=== PATIENT | female | born 1975 | race Caucasian/White ===

== ENCOUNTER 2017-09-26 19:02 | Emergency (ER) | payer MEDICAID, SELFPAY ==
[2017-09-26 19:02] VITALS: BP 135/100; PULSE 75; RESP 16; TEMP 36.8; O2SAT 99; BMI 21.1
--- NOTE | 2017-09-26 20:35 | EKG12_ITS ---
Test Reason : Blood Pressure : / mmHG Vent. Rate : 063 BPM Atrial Rate : 063 BPM P-R Int : 160 ms QRS Dur : 086 ms QT Int : 410 ms P-R-T Axes : 065 055 028 degrees QTc Int : 419 ms Normal sinus rhythm Normal ECG Confirmed by NATALIE CARMONA MD ([id number]), assistant production editor SKYLAR FERNANDEZ ([id number]) on 09/30/2017 12:59:42 PM Referred By: Confirmed By:NATALIE CARMONA MD
--- NOTE | 2017-09-26 20:35 | CT_ITS ---
STUDY: CT ABDOMEN AND PELVIS WITH CONTRAST REASON FOR EXAM: Female, 42 years old. Diarrhea and vomiting RADIATION DOSAGE (If Supplied By Facility): CTDIvol = ( 10.01 ) mGy, DLP = ( 497.69 ) mGycm TECHNIQUE: Transaxial images were obtained from the dome of the diaphragm to the symphysis pubis without oral contrast. 100 ml of Isovue 300 contrast was administered. Sagittal and coronal images were reconstructed. Individualized dose optimization techniques were used for this CT. COMPARISON: None. FINDINGS: The visualized lung bases are unremarkable. The visualized portions of the heart are within normal limits. Normal liver. Normal gallbladder and extrahepatic biliary system. Normal spleen. Normal pancreas. Normal bilateral adrenal glands. Normal right kidney. Normal left kidney. Normal visualized stomach. Normal small intestine. Normal colon. The appendix is visualized and appears normal. Normal abdominal aorta. Normal inferior vena cava. Normal retroperitoneum. Normal urinary bladder. 2 surgical clips are noted in the right pelvis. The uterus appears normal. Normal abdominal wall. Mild dextroconvex scoliosis. CT/Abdomen/Pelvis WITH Contrast IMPRESSION: No acute disease Electronically Signed: Raúl Perez MD at 23:31 EDT , Service support ,
--- NOTE | 2017-09-26 20:38 | RAD_ITS ---
STUDY: X-RAY CHEST REASON FOR EXAM: Female, 42 years old. Nausea and vomiting TECHNIQUE: Single AP portable view of the chest. COMPARISON: Previous study of June 29, 2009 FINDINGS: The lungs are clear and expanded. There is no demonstrated pleural abnormality. Normal size heart. Normal mediastinum and janay. Normal visualized pulmonary arteries. Normal visualized aortic arch and descending thoracic aorta. Normal visualized thoracic spine. Normal visualized ribs, clavicles, and shoulders. There is no demonstrated abnormality of the visualized soft tissue structures of the upper abdomen. RAD/Chest 1 View (Portable) IMPRESSION: Normal x-ray examination of the chest. Electronically Signed: Mike Aebl MD at 20:57 EDT , Service support ,
[2017-09-26] MEDS: 0.9% Normal Saline 1,000 ML 1000 ML IV (20:48)
[2017-09-26] MEDS: Ondansetron 4 MG/2 ML Vial IV (20:48)
[2017-09-26 20:50] VITALS: PULSE 67; RESP 20; O2SAT 100
[2017-09-26 20:52] LABS: Absolute Lymphocyte Count 1.19 X10^3/ul (0.83-4.51); Basophil# 0.01 X10^3/uL; Basophil% 0.3 % (0-1); Eosinophils% 5.2 % (0-5); Hematocrit 43.1 % (37-47); Hemoglobin 14.1 g/dl (12.0-15.0); Lymphocyte # 1.19 X10^3/ul (4.0); Lymphocyte % 30.8 % (19-41); Mean Corp Hgb Conc 32.7 g/gl (32-36); Mean Corpuscular Volume 100.9 fL (81-99); Mean Platelet Vol. 11.6 fl (6.2-12.0); Monocyte# 0.43 X10^3/uL; Monocyte% 11.1 % (0-10); Neutrophil # 2.02 X10^3/uL (2.7-7.7); Neutrophil % 52.3 % (47-70); Platelet Count 124 K/mm3 (150-450); RBC Distribution Width CV 12.9 % (11.6-14.6); RBC Distribution Width SD 46.8 fl (35.1-43.9); Red Blood Count 4.27 M/mm3 (4.2-5.4); White Blood Count 3.9 K/mm3 (4.4-11.0)
[2017-09-26 20:53] LABS: POSITIVE COUNT NO; POSITIVE DIFFERENTIAL NO; POSITIVE MORPHOLOGY NO
--- NOTE | 2017-09-26 20:55 | ED.VISSUMM ---
- ER Visit Summary Date of Service: 09/26/17 Chief Complaint: Nausea, vomiting, diarrhea History of Present Illness: The patient is a 42 F presenting with nausea, vomiting, diarrhea. States her symptoms started yesterday. She states she began having chest pain last night. She states she has had constant chest pain all through today. She also has nausea, vomiting, diarrhea. She has diffuse abdominal pain. She has had rhinorrhea and cough. She does have sick contacts. She is a smoker. Denies known medical problems. Physical Examination: Vitals are stable. Patient is afebrile. Alert no acute distress. HEENT exam is unremarkable. Neck is supple. Lungs are clear and equal bilaterally. Heart is regular rate and rhythm. Abdomen is soft epigastric and RLQ abdominal tenderness, no rebound or guarding. Extremities are unremarkable. Skin is warm and dry. No focal neurologic deficit. Remainder of exam is unremarkable. Emergency Department Course and Treatment: Patient is given IV fluids, Zofran. CBC normal except white count 3.9, platelets 124. This is at her baseline. Chemistries unremarkable. Liver lipase normal. Urinalysis unremarkable. Troponin is negative. HCG negative. Influenza negative. EKG is sinus rate of 63 with no acute ischemic changes. Chest xray shows no acute process. CT abdomen pelvis with IV and oral contrast shows no acute process. Patient is resting comfortably and feels improved in the ED following fluids and medications. She is given a prescription for Zofran. She is advised to follow up with her primary care physician. Advised return to ED if worsening complaints. Disposition: Discharge home Impression: Nausea, vomiting, diarrhea, atypical chest pain This note was generated with [employer] dictation software. It may contain incorrect words, spelling, and punctuation that were not noted in review of the chart prior to signing ED Disposition - Plan for ED Patient: Chief Complaint: Nausea/Vomiting/Diarrhea Referrals: Mayo Anaya MD [Primary Care Provider] -
[2017-09-26 21:11] LABS: AST(SGOT) 17 U/L (15-37); Alanine Aminotransfer ALT/SGPT 20 U/L (13-56); Albumin, Serum 3.6 g/dL (3.2-5.0); Alkaline Phosphatase 78 U/L (45-117); Anion Gap 6 (5-15); BUN 7 mg/dL (7-18); BUN/Creat Ratio 12.5 RATIO (10-20); Calcium,Total 8.3 mg/dL (8.5-10.1); Chloride 111 mmol/L (98-107); Creatinine, Serum 0.56 mg/dL (0.55-1.02); EST Glomerular Filtration Rate 126 mL/min (>60); Est Glom Filt Rate - Afr Amer 153 mL/min (>60); Estimated Creatinine Clearance 114.16 ml/min; Globulin 3.5 g/dL (2.2-4.2); Glucose 92 mg/dL (74-106); Lipase 126 U/L (73-393); Protein, Total 7.1 g/dL (6.4-8.2); Sodium Level 141 mmol/L (136-145)
[2017-09-26 21:19] LABS: Pregnancy, Serum, hCG Quali. NEGATIVE Negative (0-9 Nonpreg)
[2017-09-26 21:25] LABS: Bacteria 0 SEEN /hpf (None Seen); Mucous, Urine 0 SEEN /hpf (<or=2+)
[2017-09-26 21:31] LABS: Color, Urine Yellow (Yellow); Glucose, Dipstick Normal (Normal); Ketone-Dipstick Negative (Negative); Leukocyte Esterase-Dipstick 25 /ul (Negative); Nitrite-Dipstick Negative (Negative); Occult Blood-Urine 10 /ul (Negative); Protein-Dipstick Negative (Negative); Urine Bilirubin Dipstick Negative (Negative); Urine Clarity Sl. Cloudy (Clear); Urine Urobilinogen 4 mg/dl (Normal); Urine pH 6.5 (5.0 - 8.0)
[2017-09-26 21:40] LABS: Red Blood Cells-Urine 0-5 SEEN /hpf (0-5); Squamous Epithelial Cells - UA 10-25 SEEN /hpf (5-10); White Blood Cells 0-5 SEEN /hpf (0-5)
[2017-09-26 23:44] VITALS: BP 134/70; PULSE 62; RESP 18; O2SAT 99
--- NOTE | 2017-09-27 00:11 | ED.DEP ---
ED Disposition - Plan for ED Patient: Chief Complaint: Nausea/Vomiting/Diarrhea Instructions: ED Vomiting Diarrhea Nonspecific Ad Prescriptions: Ondansetron [Zofran Odt] 4 mg PO Q8H PRN PRN #10 tablet PRN Reason: Nausea Referrals: Mayo Anaya MD [Primary Care Provider] -
[2017-09-27 00:19] VITALS: BP 133/98; PULSE 60; RESP 18; O2SAT 96
== END 2017-09-27 00:21 | disposition home or self-care (01) ==
LOC: ED 21:04
PROVIDERS: Emergency Provider Emergency Medicine; Family Provider Internal Medicine; PCP Internal Medicine
DX: R07.89 Other chest pain (principal); R11.2 Nausea with vomiting, unspecified; R19.7 Diarrhea, unspecified; F17.200 Nicotine dependence, unspecified, uncomplicated; Z79.899 Other long term (current) drug therapy
CPT/HCPCS: 71045; 74177; 80053; 81001; 83690; 84484; 84703; 85025; 87804; 93005; 96361; 96374; 99284; J7030; Q9967; A4216; J2405

== ENCOUNTER 2018-01-10 11:24 | Emergency (ER) | payer MEDICAID, SELFPAY ==
[2018-01-10 11:25] VITALS: BP 153/98; PULSE 61; RESP 16; TEMP 36.8; O2SAT 100; BMI 21.7
--- NOTE | 2018-01-10 11:48 | ED.DCSUM_ITS ---
- ER Visit Summary Date of Service: 01/10/18 Chief Complaint: Vaginal bleeding History of Present Illness: The patient is a 42 F who presents with heavy vaginal bleeding for the past 4 days. Patient states this is worse than her normal menstrual periods. Patient states that her normal menstrual periods are approximately 3 days. Patient states she is using 3 pads per hour today. Patient states she has cramping, aching, and burning pain is worse over her lower abdomen. Patient denies any dysuria or urinary frequency. Patient states the timing of her menstrual period is normal. Physical Examination: Vital signs are stable. Patient is afebrile. Patient is in no acute distress. Oral mucosa is pink and moist. Neck is supple. There is no JVD noted. Heart was regular rate and rhythm. Lungs are clear and equal bilaterally. Abdomen is soft. Bowel sounds are normal. There is diffuse tenderness but worse over the lower abdomen. There are no masses palpated. There is no rebound or guarding noted. Cranial nerves II through XII are intact. There are no focal motor or sensory deficits noted. The remaining physical exam is within normal limits. Test Results: CBC and basic metabolic profile were within normal limits. Urinalysis shows 25-50 red blood cells. Urine hCG was negative. Emergency Department Course and Treatment: Patient was given IV fluids and Toradol here. Patient felt better on reevaluation. Patient was given a prescription for naproxen. Patient was instructed to follow-up with her primary care physician in 7-10 days. Patient understood and was agreeable with the plan. All questions were answered. Disposition: Discharge home Impression: Menorrhagia This note was generated with [employer] dictation software. It may contain incorrect words, spelling, and punctuation that were not noted in review of the chart prior to signing ED Disposition - Plan for ED Patient: Disposition: Home or Assisted Living Chief Complaint: Vag Bleeding Diagnosis: Menorrhagia Instructions: ED Cramping Menstrual Prescriptions: Naproxen [Naprosyn] 500 mg PO BID PRN #20 tab Referrals: Jacqueline Colon [Primary Care Provider] -
[2018-01-10] MEDS: 0.9% Normal Saline 1,000 ML 1000 ML IV (12:02)
[2018-01-10] MEDS: Ketorolac 30 MG/ML Syringe IV (12:02)
[2018-01-10 12:08] LABS: Absolute Lymphocyte Count 1.59 X10^3/ul (0.83-4.51); Absolute Neutrophil Count 3.1 X10^3/uL (2.0-7.7); Basophil# 0.03 X10^3/uL; Basophil% 0.5 % (0-1); Eosinophil# 0.38 X10^3/uL; Eosinophils% 6.8 % (0-5); Hematocrit 43.5 % (37-47); Hemoglobin 14.5 g/dl (12.0-15.0); Lymphocyte # 1.59 X10^3/ul (4.0); Lymphocyte % 28.4 % (19-41); Mean Corp Hgb Conc 33.3 g/gl (32-36); Mean Corpuscular Hgb 34.2 pg (27.0-32.0); Mean Corpuscular Volume 102.6 fL (81-99); Mean Platelet Vol. 12.3 fl (6.2-12.0); Monocyte# 0.46 X10^3/uL; Monocyte% 8.2 % (0-10); Neutrophil # 3.12 X10^3/uL (2.7-7.7); Neutrophil % 55.9 % (47-70); POSITIVE COUNT NO; POSITIVE DIFFERENTIAL NO; POSITIVE MORPHOLOGY NO; Platelet Count 144 K/mm3 (150-450); RBC Distribution Width CV 12.6 % (11.6-14.6); RBC Distribution Width SD 47.1 fl (35.1-43.9); Red Blood Count 4.24 M/mm3 (4.2-5.4); White Blood Count 5.6 K/mm3 (4.4-11.0)
[2018-01-10 12:11] LABS: Mucous, Urine 0 SEEN /hpf (<or=2+)
[2018-01-10 12:18] LABS: Color, Urine Yellow (Yellow); Glucose, Dipstick Normal (Normal); Ketone-Dipstick Negative (Negative); Leukocyte Esterase-Dipstick 25 /ul (Negative); Nitrite-Dipstick Negative (Negative); Occult Blood-Urine 250 /ul (Negative); Protein-Dipstick Negative (Negative); Specific Gravity, Urine 1.015 (1.002-1.030); Urine Bilirubin Dipstick Negative (Negative); Urine Clarity Sl. Cloudy (Clear); Urine Urobilinogen 4 mg/dl (Normal)
[2018-01-10 12:19] LABS: Internal QC Validated? YES +Cl - CLEAR BKGD; Pregnancy, Urine Negative Negative
[2018-01-10 12:20] LABS: AST(SGOT) 15 U/L (15-37); Alanine Aminotransfer ALT/SGPT 21 U/L (13-56); Alkaline Phosphatase 82 U/L (45-117); Anion Gap 6 (5-15); BUN 5 mg/dL (7-18); BUN/Creat Ratio 7.4 RATIO (10-20); Chloride 110 mmol/L (98-107); Creatinine, Serum 0.68 mg/dL (0.55-1.02); EST Glomerular Filtration Rate 102 mL/min (>60); Est Glom Filt Rate - Afr Amer 123 mL/min (>60); Estimated Creatinine Clearance 105.87 ml/min; Globulin 4.1 g/dL (2.2-4.2); Glucose 76 mg/dL (74-106); Lipase 160 U/L (73-393); Potassium 4.5 mmol/L (3.5-5.1); Protein, Total 8.1 g/dL (6.4-8.2); Sodium Level 140 mmol/L (136-145)
[2018-01-10 12:26] LABS: Red Blood Cells-Urine 25-50 SEEN /hpf (0-5); Squamous Epithelial Cells - UA 0-5 SEEN /hpf (5-10); White Blood Cells 0-5 SEEN /hpf (0-5)
[2018-01-10 12:27] LABS: Bacteria 1+ /hpf (None Seen)
[2018-01-10 13:29] VITALS: PULSE 63; RESP 15; O2SAT 100
[2018-01-10 14:12] VITALS: RESP 16
== END 2018-01-10 14:12 | disposition home or self-care (01) ==
PROVIDERS: Emergency Provider Emergency Medicine
DX: N92.0 Excessive and frequent menstruation with regular cycle (principal); F32.9 Major depressive disorder, single episode, unspecified; F41.9 Anxiety disorder, unspecified; Z72.0 Tobacco use; Z79.899 Other long term (current) drug therapy
CPT/HCPCS: 80053; 81001; 81025; 83690; 85025; 96361; 96374; 99283; J7030

== ENCOUNTER 2018-04-21 14:34 | Emergency (ER) | payer MEDICAID, SELFPAY ==
[2018-04-21 14:36] VITALS: BP 136/87; PULSE 74; RESP 18; TEMP 37; O2SAT 97; BMI 21.9
--- NOTE | 2018-04-21 14:50 | EKG12_ITS ---
Test Reason : CP, N/V Blood Pressure : / mmHG Vent. Rate : 072 BPM Atrial Rate : 072 BPM P-R Int : 150 ms QRS Dur : 082 ms QT Int : 390 ms P-R-T Axes : 069 049 037 degrees QTc Int : 427 ms Normal sinus rhythm Normal ECG Confirmed by NIKKY CASTILLO ([id number]), offline editor SKYLAR FERNANDEZ ([id number]) on 04/25/2018 8:30:51 AM Referred By: IGOR/ALAN Confirmed By:NIKKY CASTILLO
--- NOTE | 2018-04-21 15:32 | ED.RN ---
PT STATES SHE DRANK TO MUCH ALCOHOL LAST NIGHT.
--- NOTE | 2018-04-21 15:39 | ED.VISSUMM ---
- ER Visit Summary Date of Service: 04/21/18 Chief Complaint: Nausea and vomiting History of Present Illness: The patient is a 42 F who went out drinking with friends last night. Today she had nausea vomiting and a burning sensation in her lower chest. Patient states she has not been able to keep anything down. She usually only drinks once or twice a month for special occasions. Physical Examination: Vital signs unremarkable. Patient sitting upright in bed. She is in no acute distress. Head neck examination is unremarkable. She does have moist mucous membranes. Heart is regular rate and rhythm. Lung sounds are clear. Abdomen is soft with mild tenderness in the epigastric region. No guarding or rebound. Test Results: EKG is sinus at 72 with no sign of acute ischemia. CBC is remarkable only for platelet count of 142,000. Chemistry studies normal. LFTs and lipase normal. Emergency Department Course and Treatment: Patient was given IV fluids and Zofran. On repeat evaluation she does feel improved. She is been tolerating ice chips without difficulty and is able to get up and ambulate to the restroom without difficulty. She will be discharged with a prescription for Zofran. Treatment Plan: [] Disposition: Discharge Impression: Vomiting, improved This note was generated with [employer] dictation software. It may contain incorrect words, spelling, and punctuation that were not noted in review of the chart prior to signing ED Disposition - Plan for ED Patient: Chief Complaint: Nausea/Vomiting Referrals: Jacqueline Colon [Primary Care Provider] -
[2018-04-21] MEDS: 0.9% Normal Saline 1,000 ML 1000 ML IV (15:49)
[2018-04-21] MEDS: Ondansetron 4 MG/2 ML Vial IV (15:55)
[2018-04-21 16:01] LABS: Absolute Lymphocyte Count 0.77 X10^3/ul (0.83-4.51); Absolute Neutrophil Count 5.1 X10^3/uL (2.0-7.7); Basophil# 0.01 X10^3/uL; Basophil% 0.2 % (0-1); Eosinophil# 0.08 X10^3/uL; Eosinophils% 1.3 % (0-5); Hematocrit 42.8 % (37-47); Hemoglobin 14.2 g/dl (12.0-15.0); Lymphocyte # 0.77 X10^3/ul (4.0); Lymphocyte % 12.4 % (19-41); Mean Corp Hgb Conc 33.2 g/gl (32-36); Mean Corpuscular Hgb 33.8 pg (27.0-32.0); Mean Corpuscular Volume 101.9 fL (81-99); Mean Platelet Vol. 11.9 fl (6.2-12.0); Monocyte# 0.28 X10^3/uL; Monocyte% 4.5 % (0-10); Neutrophil # 5.08 X10^3/uL (2.7-7.7); Neutrophil % 81.6 % (47-70); Platelet Count 142 K/mm3 (150-450); RBC Distribution Width CV 12.7 % (11.6-14.6); White Blood Count 6.2 K/mm3 (4.4-11.0)
[2018-04-21 16:03] LABS: POSITIVE COUNT NO; POSITIVE DIFFERENTIAL NO; POSITIVE MORPHOLOGY NO
[2018-04-21 16:19] LABS: AST(SGOT) 13 U/L (15-37); Alanine Aminotransfer ALT/SGPT 24 U/L (13-56); Albumin, Serum 4.2 g/dL (3.2-5.0); Alkaline Phosphatase 85 U/L (45-117); Anion Gap 7 (5-15); BUN 7 mg/dL (7-18); BUN/Creat Ratio 11.8 RATIO (10-20); Bilirubin, Direct 0.16 mg/dL (0.00-0.30); Calcium,Total 9.1 mg/dL (8.5-10.1); Chloride 112 mmol/L (98-107); Creatinine, Serum 0.59 mg/dL (0.55-1.02); EST Glomerular Filtration Rate 119 mL/min (>60); Est Glom Filt Rate - Afr Amer 144 mL/min (>60); Estimated Creatinine Clearance 108.36 ml/min; Globulin 3.7 g/dL (2.2-4.2); Glucose 100 mg/dL (74-106); Lipase 83 U/L (73-393); Potassium 4.4 mmol/L (3.5-5.1); Protein, Total 7.9 g/dL (6.4-8.2); Sodium Level 142 mmol/L (136-145)
--- NOTE | 2018-04-21 16:20 | ED.RN ---
CALLED PHARMACY FOR PEPCID
[2018-04-21] MEDS: 0.9% Normal Saline 1,000 ML 150 ML IV (16:47)
[2018-04-21 17:02] VITALS: BP 122/70
--- NOTE | 2018-04-21 17:11 | ED.DEP ---
ED Disposition - Plan for ED Patient: Disposition: Home or Assisted Living Chief Complaint: Nausea/Vomiting Instructions: ED Nausea Vomiting Prescriptions: Ondansetron [Zofran Odt] 4 mg PO Q8H PRN PRN #10 tablet PRN Reason: Nausea Referrals: Jacqueline Colon [Primary Care Provider] - 5-7 Days
== END 2018-04-21 17:27 | disposition home or self-care (01) ==
PROVIDERS: Emergency Provider Emergency Medicine
DX: R11.2 Nausea with vomiting, unspecified (principal); Z72.0 Tobacco use
CPT/HCPCS: 80048; 80076; 83690; 85025; 93005; 96361; 96374; 96375; 99283; J7030; J2405; J3490

== ENCOUNTER 2018-12-28 09:47 | Emergency (ER) | payer MEDICAID, SELFPAY ==
[2018-12-28 09:47] VITALS: BP 141/92; PULSE 74; RESP 18; TEMP 36.6; O2SAT 100; BMI 20.9
--- NOTE | 2018-12-28 09:56 | ED.VIS.LOWEX ---
History of Present Illness Chief Complaint: Lower Extremity Injury Informant: Patient Occurred: Yesterday Mechanism/Context: - - Foot closed in screen door Onset: Yesterday Context: Sudden Onset Timing: Continuous Quality of Pain: Aching, Throbbing Current Severity: Moderate Maximum Severity: Moderate Associated Symptoms: Negative for: Parasthesia - Past Medical History (1) Anxiety Status: Acute (2) Depression Status: Acute Past Medical History - Allergies and Home Meds Allergies/Adverse Reactions: Allergies cat dander Allergy (Verified 12/28/18 09:49) Shortness of breath dog dander Allergy (Verified 12/28/18 09:49) Shortness of breath grass pollen Allergy (Verified 12/28/18 09:49) Hives acetaminophen [From Vicodin] Adverse Reaction (Verified 12/28/18 09:49) Vomiting hydrocodone bitartrate [From Vicodin] Adverse Reaction (Verified 12/28/18 09:49) Vomiting Primary Care Physician: Jacqueline Colon [Primary Care Provider] - Lives: With Family Smoking Status: Current every day smoker Review of Systems General: Denies: Fever Cardiovascular: Denies: Chest pain Respiratory: Denies: Dyspnea Musculoskeletal: Reports: Arthralgias Neurological: Denies: Parasthesia, Numbness Physical Exam Vital Signs/Narrative: Vital Signs Temp Pulse Resp BP Pulse Ox 12/28/18 09:47 97.9 F 74 18 141/92 H 100 - Extremity Exam Right Foot: - - Tenderness to palpation around right great toenail. No obvious bony deformity. Patient has evidence of clearing athlete's foot infection of the right foot. No sign of secondary infection. General: Well nourished, Well developed ENT: No Trauma Neck: Nontender Cardiovascular: Regular rate, Regular rhythm Respiratory: No distress Back: Nontender Neurological: Alert Psychological: Normal affect Diagnostic/Tx/Re-eval Right foot x-rays reviewed by myself reveal no sign of acute fracture. - Medical Decision Making X-ray results discussed with patient. Right great toe and second toe are kunal taped. She will be given a postop shoe and crutches. She may weight-bear as tolerated. She is given a prescription for naproxen. ED Disposition - Plan for ED Patient: Disposition: Home or Assisted Living Diagnosis: Nail avulsion of toe, Crushing injury of right great toe Instructions: NAIL AVULSION, Partial, CRUSH INJURY, Foot/Toe Prescriptions: Naproxen [Naprosyn] 500 mg PO BID PRN PRN #20 tablet PRN Reason: Pain Referrals: Jacqueline Colon [Primary Care Provider] - 1-2 Weeks
[2018-12-28] MEDS: Naproxen 500 MG Tablet PO (10:03)
--- NOTE | 2018-12-28 10:05 | RAD_ITS ---
STUDY: X-RAY - RIGHT FOOT CLINICAL: Female, 43 years old. Big toe injury. Pain. TECHNIQUE: 3 view(s) of the foot. COMPARISON: January 04, 2016. FINDINGS: No acute fracture, dislocation or osseous destruction. No significant joint space narrowing. No significant productive changes. No significant soft tissue swelling. RAD/Foot min 3 Views IMPRESSION: Right foot intact Electronically Signed: Randolph Anguiano DO at 11:10 EDT Tel , Service support ,
== END 2018-12-28 11:12 | disposition home or self-care (01) ==
PROVIDERS: Emergency Provider Emergency Medicine
DX: S97.111A Crushing injury of right great toe, initial encounter (principal); S91.201A Unspecified open wound of right great toe with damage to nail, initial encounter; F41.9 Anxiety disorder, unspecified; F32.9 Major depressive disorder, single episode, unspecified; F17.200 Nicotine dependence, unspecified, uncomplicated; Z79.899 Other long term (current) drug therapy; W23.0XXA Caught, crushed, jammed, or pinched between moving objects, initial encounter; Y93.89 Activity, other specified; Y92.89 Other specified places as the place of occurrence of the external cause; Y99.8 Other external cause status
CPT/HCPCS: 73630; 99284

== ENCOUNTER 2019-07-19 17:32 | Emergency (ER) | payer MEDICAID, SELFPAY ==
[2019-07-19 17:33] VITALS: BP 122/88; PULSE 80; RESP 18; TEMP 37.1; O2SAT 100; BMI 24.0
--- NOTE | 2019-07-19 17:47 | CT_ITS ---
STUDY: CT ABDOMEN AND PELVIS WITHOUT CONTRAST REASON FOR EXAM: Female, 44 years old. RT SIDED ABDOMEN PAIN TODAY,DX WITH OVARIAN CYSTS ON TUESDAY -- TUBAL LIGATION,IUD RADIATION DOSAGE (If Supplied By Facility): CTDIvol = ( 6.25 ) mGy, DLP = ( 307.40 ) mGycm TECHNIQUE: Transaxial images were obtained from the dome of the diaphragm to the symphysis pubis without oral contrast, and without intravenous contrast. Sagittal and coronal images were reconstructed. Individualized dose optimization techniques were used for this CT. COMPARISON: September 26, 2017 FINDINGS: The visualized lung bases are unremarkable. The visualized portions of the heart are within normal limits. Normal liver. Normal gallbladder and extrahepatic biliary system. Normal spleen. Normal pancreas. Normal bilateral adrenal glands. Normal right kidney. Normal left kidney. Normal visualized stomach. Normal small intestine. Probable constipation. The appendix is visualized and appears normal. Normal abdominal aorta. Normal inferior vena cava. Normal retroperitoneum. Normal urinary bladder. IUD. Fallopian tube clips. Moderate free pelvic fluid. Normal abdominal wall. Normal osseous structures. CT/Abdomen/Pelvis without Cont IMPRESSION: Moderate free pelvic fluid. No evidence of appendicitis, acute intestinal pathology, or acute obstructive uropathy. Constipation. Electronically Signed: Ed Taylor MD at 19:30 EST Tel , Service support ,
[2019-07-19] MEDS: Ondansetron 4 MG/2 ML Vial IV (18:04)
[2019-07-19] MEDS: 0.9% Normal Saline 1,000 ML 125 ML IV (18:04)
[2019-07-19] MEDS: Morphine 4 MG/ML Syringe IV (18:06)
[2019-07-19] MEDS: Ketorolac 30 MG/ML Syringe IV (18:09)
[2019-07-19 18:10] VITALS: RESP 16
[2019-07-19 18:22] LABS: Mucous, Urine 0 SEEN /hpf (<or=2+)
[2019-07-19 18:23] LABS: Absolute Lymphocyte Count 1.74 X10^3/uL (0.83-4.51); Absolute Neutrophil Count 3.2 X10^3/uL (2.0-7.7); Basophil# 0.04 X10^3/uL; Basophil% 0.7 % (0-1); Eosinophil# 0.51 X10^3/uL; Eosinophils% 8.4 % (0-5); Hematocrit 38.8 % (37-47); Hemoglobin 12.4 g/dL (12.0-15.0); Lymphocyte # 1.74 X10^3/ul (4.0); Lymphocyte % 28.6 % (19-41); Mean Corpuscular Hgb 32.6 pg (27.0-32.0); Mean Corpuscular Volume 102.1 fL (81-99); Mean Platelet Vol. 12.4 fl (6.2-12.0); Monocyte# 0.57 X10^3/uL; Monocyte% 9.4 % (0-10); NRBC Flagged by Analyzer 0 % (0-5); Neutrophil # 3.22 X10^3/uL (2.7-7.7); Neutrophil % 52.7 % (47-70); Platelet Count 143 K/mm3 (150-450); RBC Distribution Width CV 12.4 % (11.6-14.6); RBC Distribution Width SD 46.5 fl (35.1-43.9); White Blood Count 6.1 K/mm3 (4.4-11.0)
[2019-07-19 18:35] LABS: Color, Urine Yellow (Yellow); Glucose, Dipstick Normal (Normal); Ketone-Dipstick Negative (Negative); Leukocyte Esterase-Dipstick 500 /ul (Negative); Nitrite-Dipstick Negative (Negative); Occult Blood-Urine 150 /ul (Negative); Protein-Dipstick Negative (Negative); Urine Clarity Sl. Cloudy (Clear); Urine Urobilinogen 4 mg/dl (Normal); Urine pH 6.5 (5.0 - 8.0)
--- NOTE | 2019-07-19 18:36 | ED.VISSUMM ---
- ER Visit Summary Date of Service: 07/19/19 Chief Complaint: [Abdominal pain] History of Present Illness: The patient is a 44 F [presents the emergency department complaint of abdominal pain that really became severe today. Patient rates it currently a 9 out of 10 and describes it as in the right lower abdomen and at times into her right back. Patient denies any nausea or vomiting with it. She denies urinary symptoms. Patient states that she had an ultrasound of the pelvis 2 days ago that showed some ovarian cysts on the right ovary that together measured about 7 cm. Patient had the ultrasound because she has been having some painful periods. Patient otherwise has no medical history. Surgical history includes tubal ligation. No history of kidney stones. Patient denies any blood in her stool or black tarry stools.] Physical Examination: [HEENT-PERRLA, EOMI. Cranial nerves II through XII grossly intact. TMs clear. Mucous membranes moist. No adenopathy. Cardiovascular-regular rate and rhythm without murmur or ectopy Lungs-clear to auscultation, chest wall stable without crepitus or subcu emphysema Abdomen-normoactive bowel sounds, soft. Patient has tenderness palpation over right lower quadrant with some guarding. There is no rebound, rigidity, or peritoneal signs. Patient has mild CVA newness on the right. Extremities-intact ?4, normal range of motion, normal pulses, atraumatic] Test Results: [CBC with differential obtained showing a 6.1, hemoglobin 12, hematocrit 39, platelets 143.] Chemistries were unremarkable. Urinalysis was positive for 500 leukocyte esterase as well as 25-50 WBCs and 5-[address] RBCs[address] h[address] was negative. [address] scan of the abdomen pelvis without contrast showed constipation as well as moderate free fluid without evidence of obstruction or kidney stones. Emergency Department Course and Treatment: Patient had an IV line established and she was medicated with morphine, Toradol, and Zofran initially. Patient had good pain relief. Patient was given Rocephin 1 g IV. [] Treatment Plan: [Case was discussed with Dr. Vira Hall who asked that patient follow-up with her office. I suspect she may have had 1 of her ovarian cysts rupture explaining the moderate fluid in the pelvis. Patient also will be treated with Bactrim for her UTI as well as Pyridium. She will be given a few Percocet for pain.] Disposition: [Discharged to home in stable condition] Impression: [Abdominal pain UTI Ovarian cysts] This note was generated with [employer] dictation software. It may contain incorrect words, spelling, and punctuation that were not noted in review of the chart prior to signing ED Disposition - Plan for ED Patient: Referrals: Julio Bonilla MD [Primary Care Provider] -
[2019-07-19 18:40] LABS: Anion Gap 4 (5-15); BUN 10 mg/dL (7-18); BUN/Creat Ratio 13.4 RATIO (10-20); Calcium,Total 8.6 mg/dL (8.5-10.1); Chloride 111 mmol/L (98-107); Creatinine, Serum 0.75 mg/dL (0.55-1.02); EST Glomerular Filtration Rate 90 mL/min (>60); Est Glom Filt Rate - Afr Amer 109 mL/min (>60); Estimated Creatinine Clearance 83.52 ml/min; Glucose 83 mg/dL (74-106); Potassium 4.1 mmol/L (3.5-5.1); Sodium Level 140 mmol/L (136-145)
[2019-07-19 18:45] LABS: Internal QC Validated? YES +Cl - CLEAR BKGD; Pregnancy, Serum, hCG Quali. NEGATIVE Negative
[2019-07-19 18:47] LABS: Urine Bilirubin Dipstick 1 mg/dL (Negative)
[2019-07-19 18:48] LABS: Amorphous Sediment 1+ URATE; Bacteria RARE /hpf (None Seen); Red Blood Cells-Urine 5-10 SEEN /hpf (0-5); Squamous Epithelial Cells - UA 0-5 SEEN /hpf (5-10); White Blood Cells 25-50 SEEN /hpf (0-5)
[2019-07-19] MEDS: Ceftriaxone 1 GM/50 ML BAG IV (19:24)
--- NOTE | 2019-07-19 20:12 | ED.DEP ---
ED Disposition - Plan for ED Patient: Instructions: Bladder Infection, Female (Adult), Ovarian Cyst Prescriptions: Smz/Tmp Ds [Bactrim Ds] 1 tab PO BID #6 tab Prescription Printed Oxycodone HCl/Acetaminophen [Percocet 5/325] 1 tab PO Q6H PRN PRN 3 Days #12 tab PRN Reason: Pain Prescription Printed Phenazopyridine HCl [Pyridium] 200 mg PO BID PRN PRN #10 tab PRN Reason: Pain Prescription Printed Referrals: Julio Bonilla MD [Primary Care Provider] - Janki Fried MD [STAFF PHYSICIAN] - 3-5 Days
[2019-07-19 20:24] VITALS: BP 138/96; PULSE 71; PULSE 76; RESP 18; O2SAT 100; O2SAT 99
== END 2019-07-19 20:27 | disposition home or self-care (01) ==
LOC: ED 18:08
PROVIDERS: Emergency Provider Emergency Medicine; PCP Internal Medicine
DX: N39.0 Urinary tract infection, site not specified (principal); N83.201 Unspecified ovarian cyst, right side
CPT/HCPCS: 74176; 80048; 81001; 84703; 85025; 96361; 96365; 96375; 99284; J7030; J2405

== ENCOUNTER → 2020-11-14 14:13 | Outpatient (CLI) | payer MEDICAID, SELFPAY ==
--- NOTE | 2020-11-14 14:10 | BI_ITS ---
MAMMOGRAPHY - UNILATERAL DIAGNOSTIC: LEFT BREAST REASON FOR EXAM: Female, 45 years old. ABN MAMM PERTINENT HISTORY: Non-contributory. TECHNIQUE: Digital examination. Spot compression cc view CAD: CAD was performed on this study. COMPARISON: Outside mammogram from 10/02/2020 FINDINGS: Breast Composition: The breasts are heterogeneously dense, which may obscure small masses. The previously identified area of asymmetry in the medial aspect of the left breast is seen on the spot compression views as it compresses out normally. This suggests that the underlying abnormality was likely overlapping breast tissue. There is no suspicious solid mass, or architectural distortion. BI/DIAG MAMM W/CAD, UNILAT IMPRESSION: Negative unilateral diagnostic mammogram. Yearly followup recommended. ASSESSMENT CATEGORY: BIRADS Category 2: Benign. A letter regarding these results will be sent to the patient by the facility within 30 days. FOLLOW-UP RECOMMENDATION: Yearly follow-up mammogram recommended. (A) Approximately 10% of breast cancers are not detected by mammography. A normal mammogram should not delay biopsy of a clinically suspicious abnormality. Electronically Signed: Ponce Ponce MD at 8:06 EDT , Service support ,
== END ==
PROVIDERS: PCP Internal Medicine; Referring Provider Nurse Practitioner Family; Visit Provider Nurse Practitioner Family
DX: R92.8 Other abnormal and inconclusive findings on diagnostic imaging of breast (principal)
CPT/HCPCS: 77065

== ENCOUNTER 2022-03-11 13:40 | Emergency (ER) | payer MEDICAID, SELFPAY ==
[2022-03-11 13:42] VITALS: BP 159/116; PULSE 92; RESP 18; TEMP 37.1; O2SAT 100; BMI 20.9
--- NOTE | 2022-03-11 14:22 | EDS_ITS ---
HPI HPI - Psych History of Present Illness Chief Complaint: Mental Health Informant: patient Associated Symptoms Associated Symptoms - Psych: Positive for Depressed, Change in Eating, Change in sleeping, Decreased Interest, Decreased Concentration and Hopelessness; Negative for Suicidal Thoughts Specific plan (suicidal thought): not suicidal Narrative Narrative: For the past 1 to 2 weeks, patient is recently moved and feeling depressed. She used to be on Zoloft for depression but has not taken it in months. She ran out of it. She does not see a counselor but states she would like to. She is here with a neighbor's friend who is concerned about her feeling anxious and fidgety at times, asking questions about menopause. Patient states she sometimes gets knots in her abdomen, seems to be triggered more with episodes of anxiety or panic or when someone gets upset with me. She states she really just wants to talk to somebody and did not know how to make that happen. She denies using substances. [facility] Medical History (Updated 03/11/22 @ 15:[address] Cody Carver MD) Anxiety Contusion of right great toe without damage to nail Depression Hyperkeratosis of nail Home Medications buspirone 30 mg tablet 30 mg PO QHS 09/26/17 [History Last Taken Unknown] naproxen 500 mg tablet 500 mg PO BID PRN #20 tabs 01/10/18 [Rx Last Taken Unknown] naproxen 500 mg tablet 500 mg PO BID PRN PRN Pain #20 tabs 12/28/18 [Rx Last Taken Unknown] phenazopyridine 200 mg tablet 200 mg PO BID PRN PRN Pain #10 tabs 07/19/19 [Rx Last Taken Unknown] sulfamethoxazole 800 mg-trimethoprim 160 mg tablet 1 tab PO BID #6 tabs 07/19/19 [Rx Last Taken Unknown] sertraline 100 mg tablet 100 mg PO QHS #30 tabs 03/11/22 [Rx Last Taken Unknown] Allergy/AdvReac Type Severity Reaction Status Date / Time cat dander Allergy Shortness Verified 03/11/22 13:42 of breath dog dander Allergy Shortness Verified 03/11/22 13:42 of breath grass pollen Allergy Hives Verified 03/11/22 13:42 acetaminophen [From Vicodin] AdvReac Vomiting Verified 03/11/22 13:42 hydrocodone bitartrate AdvReac Vomiting Verified 03/11/22 13:42 [From Vicodin] Social History Smoking Status: Current some day smoker tobacco type: cigarettes ROS ROS ED Constitutional Constitutional ED: Denies chills or fever(s) Eyes Eyes: Denies change in vision or diplopia ENT ENT ED: Denies rhinorrhea or sore throat Cardiovascular Cardiovascular: Denies chest pain or palpitations Respiratory/Chest Respiratory/Chest: Denies cough or dyspnea Gastrointestinal Gastrointestinal: Reports abdominal pain; Denies diarrhea, nausea or vomiting Genitourinary Genitourinary ED: Denies dysuria or hematuria Musculoskeletal Musculoskeletal: Denies back pain or neck pain Integumentary Denies abscess or rash Neurologic Neurologic: Denies headache(s), paresthesias or weakness Psychiatric Psychiatric: Reports anxiety and depression; Denies homicidal ideation, suicidal ideation or suicidal thoughts EXAM Physical Exam Const Vital Signs: 03/11/22 13:42 Temperature 98.7 F Temperature Source Temporal Pulse Rate 92 Respiratory Rate 18 Blood Pressure 159/116 H Blood Pressure Mean 130 Pulse Ox 100 Oxygen Delivery Method Room Air Positive well nourished and well developed General Appearance ED: well developed and NAD HEENT Reports moist mucous membranes normocephalic and atraumatic Eyes PERRL and EOMs intact bilaterally General Eye ED: Negative for scleral icterus Neck no lymphadenopathy and supple Resp normal respiratory effort and clear to auscultation bilaterally Cardio no murmurs Rate: regular rate; Negative for tachycardic Rhythm: regular rhythm GI non-tender and non-distended Auscultation: normoactive bowel sounds Palpation: soft Back/Spine no CVA tenderness and normal ROM Extremity normal to inspection General Extremety ED: Negative for edema General Extremity: Negative for edema Neuro oriented x3, CN's II-XII intact bilaterally, no sensory deficits noted and gait normal Sensorium / Orientation: alert Motor Exam: strength 5/5 throughout Psych mental status grossly normal, thought process normal, cooperative, activity/motor behavior normal, denies homicidal ideation and denies suicidal ideation Mood & Affect: depressed Thought Content: No suicidality Skin Lesions: no lesions Rashes: no rashes MDM MDM MDM Narrative Medical decision making narrative: I had social work speak with the patient for a while. She is under the in fluence of alcohol or drugs at this time. Social work is in agreement with the patient and myself that the patient can follow-up with intensive outpatient as an outpatient, I am happy to give her a short prescription for Zoloft to get her started back on that, and she is comfortable with that plan. She contracts for safety, she has no suicidal ideation at this time. Discharge Plan Triage Chief Complaint: Mental Health ED Provider: Cody Carver Dx/Rx/DC Orders Clinical Impression: Depression Instructions: Depression SCI Prescriptions: Continued buspirone 30 MG tablet 30 mg PO QHS naproxen 500 MG tablet 500 mg PO BID PRN Qty: 20 0RF naproxen 500 MG tablet 500 mg PO BID PRN PRN (Reason: Pain) Qty: 20 0RF sulfamethoxazole-trimethoprim 1 TABLET tablet 1 tab PO BID Qty: 6 0RF phenazopyridine 200 MG tablet 200 mg PO BID PRN PRN (Reason: Pain) Qty: 10 0RF sertraline 100 MG tablet 100 mg PO QHS Qty: 30 0RF Primary Care Provider: Julio Bonilla Referrals: Julio Bonilla MD [Primary Care Provider] - As Needed Activity Restrictions/Additional Instructions: Follow-up with intensive outpatient and as directed by social work Disposition Disposition: Home, Self Care
[2022-03-11 15:16] LABS: Alcohol, Blood (Medical)-Serum < 3.0 mg/dL
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
[2022-03-11 15:44] LABS: Internal QC Validated? YES +Cl - CLEAR BKGD; Pregnancy, Serum, hCG Quali. NEGATIVE Negative
--- NOTE | 2022-03-11 15:57 | CM.ED ---
CHEPE Note CHEPE called Lexi at [facility] IOP/PHP and made referral for patient. CHEPE attempted to follow up phone call for patient. CHEPE left voice mail for patient requesting a follow up phone call. Plan: Home with referral to IOP/PHP and MH resources. Agueda SALMERON
== END 2022-03-11 15:20 | disposition home or self-care (01) ==
PROVIDERS: Emergency Provider Emergency Medicine; PCP Internal Medicine; Visit Provider Emergency Medicine
DX: F32.A Depression, unspecified (principal); F17.210 Nicotine dependence, cigarettes, uncomplicated
CPT/HCPCS: 36415; 82077; 84703; 87086; 87088; 87186; 99282

== ENCOUNTER 2023-03-14 14:32 | Emergency (ER) | payer MEDICAID, SELFPAY ==
[2023-03-14 14:34] VITALS: BP 136/94; PULSE 83; RESP 18; TEMP 36.8; O2SAT 99
--- NOTE | 2023-03-14 14:48 | EX.ED.GENINJ ---
HPI History of Present Illness Chief Complaint: Fall Detail of Chief Complaint: Fall Informant: patient Narrative Narrative: Patient presents to the emergency department with complaint of that occurred prior arrival emergency department patient presents via EMS. Patient states that she was pushing a shopping cart and slipped on some rocks and fell. She fell forward injuring her right hand and left parrish. Unable to bear weight afterwards. Patient unsure of her last tetanus shot. [facility] Medical History (Updated 03/14/23 @ 15:[address] Medhat Jain DO) Anxiety Contusion of right great toe without damage to nail Depression Hyperkeratosis of nail Home Medications buspirone 30 mg tablet 30 mg PO QHS 09/26/17 [History Last Taken Unknown] naproxen 500 mg tablet 500 mg PO BID PRN #20 tabs 01/10/18 [Rx Last Taken Unknown] naproxen 500 mg tablet 500 mg PO BID PRN PRN Pain #20 tabs 12/28/18 [Rx Last Taken Unknown] phenazopyridine 200 mg tablet 200 mg PO BID PRN PRN Pain #10 tabs 07/19/19 [Rx Last Taken Unknown] sulfamethoxazole 800 mg-trimethoprim 160 mg tablet 1 tab PO BID #6 tabs 07/19/19 [Rx Last Taken Unknown] sertraline 100 mg tablet 100 mg PO QHS #30 tabs 03/11/22 [Rx Last Taken Unknown] Allergy/AdvReac Type Severity Reaction Status Date / Time cat dander Allergy Shortness Verified 03/14/23 14:34 of breath dog dander Allergy Shortness Verified 03/14/23 14:34 of breath grass pollen Allergy Hives Verified 03/14/23 14:34 acetaminophen [From Vicodin] AdvReac Vomiting Verified 03/14/23 14:34 hydrocodone bitartrate AdvReac Vomiting Verified 03/14/23 14:34 [From Vicodin] Social History Smoking Status: Current some day smoker tobacco type: cigarettes ROS ROS ED Review of Systems ROS Unobtainable: other Constitutional Constitutional ED: Reports lethargy; Denies chills, fever(s), sweats or weight loss Eyes Eyes: Denies blurry vision, change in vision or diplopia ENT ENT ED: Denies rhinorrhea or sore throat Cardiovascular Cardiovascular: Denies chest pain, orthopnea or racing heartbeat Respiratory/Chest Respiratory/Chest: Denies cough, dyspnea, dyspnea on exertion, orthopnea or sputum Gastrointestinal Gastrointestinal: Denies abdominal pain, diarrhea, nausea or vomiting Genitourinary Genitourinary ED: Denies dysuria, hematuria or urinary frequency Musculoskeletal Musculoskeletal: Reports other Details: Right middle and ring finger injury with abrasions, pain right parrish ; Denies arthralgias, back pain, myalgias or neck pain Integumentary Denies abscess, Abrasions or rash Neurologic Neurologic: Denies headache(s) or weakness Psychiatric Psychiatric: Denies anxiety, depression or suicidal thoughts Endocrine Endocrinology: Denies polydipsia, polyphagia or polyuria Hematologic/Lymphatic Hematologic/Lymphatic: Denies easy bleeding, easy bruising or lymphadenopathy Allergic/Immunologic Allergic/Immunologic ED: Denies mouth swelling, tongue swelling or urticaria EXAM Physical Exam Const Vital Signs: 03/14/23 14:34 03/14/23 14:54 Temperature 98.3 F Temperature Source Temporal Pulse Rate 83 Respiratory Rate 18 Respiratory Effort Normal Non-Labored Blood Pressure 136/94 H Blood Pressure Mean 108 Pulse Ox 99 Oxygen Delivery Method Room Air Positive well nourished and well developed General Appearance ED: well developed and NAD HEENT Reports TM's clear and moist mucous membranes normocephalic and atraumatic; Negative for trauma or tenderness Tympanic Membrane ED: Yes TM's clear Eyes PERRL and EOMs intact bilaterally General Eye ED: Negative for pale conjunctiva or scleral icterus Neck no lymphadenopathy, supple and no JVD General: Negative for tenderness Chest Wall inspection of chest normal and palpation of chest normal Chest: Negative for tenderness Resp normal respiratory effort and clear to auscultation bilaterally Effort and Inspection: Negative for respiratory distress or pain with movement Auscultation: Negative for rhonchi, wheezes or diminished lung sounds Cardio regular rate, regular rhythm, S1 normal heart sound, S2 normal heart sound and no murmurs Peripheral Pulses: pulses 2+ throughout GI normal to inspection, nondistended, normoactive bowel sounds, soft to palpation, non-tender, non-distended and no masses Back/Spine no CVA tenderness and no thoracic nor lumbar tenderness Extremity Extremity Narrative: Parrish-patient has superficial abrasion and soft tissue swelling over the anterior aspect of the mid parrish with tenderness palpation over the anterior tibia. She is neurovascular intact distally. Right hand-patient has superficial abrasions involving the middle and ring fingers dorsum. No obvious deformity. Neurovascular intact distally. General Extremety ED: Negative for edema General Extremity: Negative for edema Neuro oriented x3, CN's II-XII intact bilaterally, no sensory deficits noted and gait normal Sensorium / Orientation: awake, alert, oriented to person, oriented to place and oriented to time Motor Exam: strength 5/5 throughout and strength abnormal Psych mental status grossly normal Skin no rashes or lesions noted and no wounds MDM MDM MDM Narrative Medical decision making narrative: Patient was then sent for a fall. She has injury to her right hand and left parrish. X-rays of the hand and parrish obtained interpreted by myself as no evidence of fractures. I did remove the ring from her ring finger. Patient will have clean dressings applied to abrasions. She received a tetanus booster. Patient will be given an Darryl wrap for admission and crutches for comfort. Advised use ibuprofen or Tylenol for discomfort. She is to follow-up with her primary care physician in 5 to 7 days. Radiography Diagnostic Testing: Clinical Impression(s) from Imaging Studies Hand X-Ray 03/14/23 15:05 IMPRESSION: Normal x-ray examination of the hand. Electronically Signed: Jack Fajardo MD at 15:32 EDT , Tibia/Fibula X-Ray 03/14/23 15:05 IMPRESSION: Normal x-ray examination of the tibia and fibula. Electronically Signed: Jack Fajardo MD at 15:32 EDT , New x-rays of the left tib-fib obtained interpreted by myself as no evidence of fracture. Three-view x-rays of the right hand obtained interpreted by myself as no fracture or dislocation Discharge Plan Triage Chief Complaint: Fall ED Provider: Medhat Jain Dx/Rx/DC Orders Clinical Impression: Contusion of left leg, Abrasion hand, Fall Instructions: ED Abrasion, ED Contusion, Lower Extremity Prescriptions: No Action buspirone 30 MG tablet 30 mg PO QHS naproxen 500 MG tablet 500 mg PO BID PRN Qty: 20 0RF naproxen 500 MG tablet 500 mg PO BID PRN PRN (Reason: Pain) Qty: 20 0RF sulfamethoxazole-trimethoprim 1 TABLET tablet 1 tab PO BID Qty: 6 0RF phenazopyridine 200 MG tablet 200 mg PO BID PRN PRN (Reason: Pain) Qty: 10 0RF sertraline 100 MG tablet 100 mg PO QHS Qty: 30 0RF Primary Care Provider: Julio Bonilla Referrals: Julio Bonilla MD [Primary Care Provider] - 5-7 Days Disposition Disposition: Home, Self Care Discharge Date/Time: 03/14/23 15:47
[2023-03-14] MEDS: Diphth,Pertuss(Acell),Tet Vac 0.5 ML Vial IM (14:53)
[2023-03-14 14:54] VITALS: BMI 22.0
--- NOTE | 2023-03-14 15:05 | RAD_ITS ---
STUDY: X-RAY - RIGHT HAND REASON FOR EXAM: Female, 47 years old. Pain involving the third digit following a fall. TECHNIQUE: 3 view(s) of the hand. COMPARISON: None. FINDINGS: Normal radiocarpal articulation. Normal distal radioulnar joint. Normal visualized carpal bones. Normal carpal articulations Normal carpometacarpal articulation of the thumb. Normal second through fifth carpometacarpal joints. Normal metacarpi. Normal metacarpophalangeal joint of the thumb. Normal interphalangeal joint of the thumb. Normal proximal and distal phalanges of the thumb. Normal metacarpophalangeal joints of the second through fifth fingers. Normal proximal and distal interphalangeal joints of the second through fifth fingers. Normal phalanges of the second through fifth fingers. The soft tissue structures are unremarkable. RAD/Hand Min 3 Views IMPRESSION: Normal x-ray examination of the hand. Electronically Signed: Jack Fajardo MD at 15:32 EDT ,
--- NOTE | 2023-03-14 15:05 | RAD_ITS ---
STUDY: X-RAY - LEFT TIBIA AND FIBULA REASON FOR EXAM: Female, 47 years old. Pain following a fall. TECHNIQUE: 3 view(s) of the tibia and fibula were obtained. COMPARISON: None. FINDINGS: Normal visualized tibia. Normal visualized fibula. The soft tissue structures are unremarkable. RAD/Tibia & Fibula 2 Views IMPRESSION: Normal x-ray examination of the tibia and fibula. Electronically Signed: Jack Fajardo MD at 15:32 EDT ,
== END 2023-03-14 15:47 | disposition home or self-care (01) ==
LOC: ED 15:34
PROVIDERS: Emergency Provider Emergency Medicine; PCP Internal Medicine; Visit Provider Emergency Medicine
DX: S80.12XA Contusion of left lower leg, initial encounter (principal); S60.511A Abrasion of right hand, initial encounter; F17.210 Nicotine dependence, cigarettes, uncomplicated; W01.0XXA Fall on same level from slipping, tripping and stumbling without subsequent striking against object, initial encounter
CPT/HCPCS: 73130; 73590; 90715; 99285

== ENCOUNTER 2024-08-12 17:36 | Emergency (ER) | payer MEDICAID, SELFPAY ==
[2024-08-12 17:36] VITALS: BP 135/102; PULSE 74; RESP 15; TEMP 36.7; O2SAT 99; BMI 22.6
--- NOTE | 2024-08-12 17:49 | EX.ED.DYSGE1 ---
HPI History of Present Illness Chief Complaint: Cold Sx Detail of Chief Complaint: Flulike symptoms and cat bite left thumb Informant: patient Onset/Context/Timing Onset: Yesterday (Onset of flulike symptoms) and Days (Bit by cat 2 days ago) Context: Sudden Onset Timing: Continuous and Waxes and wanes Quality: Flulike symptoms with myalgias and arthralgias Location: Upper respiratory and left hand/thumb Current Severity: Mild Maximum Severity: Moderate Worsened by: Nothing Relieved by: Nothing Associated Symptoms Associated Symptoms: Subjective fever, chills, productive cough with myalgias arthralgias Narrative Narrative: Patient is a 49-year-old woman who presents with flulike symptoms. She was noted to have a Band-Aid on her left hand. She states she was bit 2 days ago when she was attempting to put her cat and cage because it was hurt and bleeding. Cat bit her. She denies allergy to penicillin. She denies paresthesia, anesthesia or motor weakness of the left hand. She states there is redness. There is slight discharge. Patient does endorse headache, rhinorrhea, congestion and sore throat. She does have a productive cough. She denies wheezing. She denies history of smoking. She denies abdominal pain, nausea, vomiting or diarrhea. Prior similar symptoms: No Recent Illness/Hospitalization: No [facility] Medical History Hyperkeratosis of nail Contusion of right great toe without damage to nail Depression Anxiety Home Medications ?Medication ?Instructions ?Recorded ?Last Taken ?Type buspirone 30 mg tablet 30 mg PO QHS 09/26/17 Unknown History naproxen 500 mg tablet 500 mg PO BID PRN #20 tabs 01/10/18 Unknown Rx naproxen 500 mg tablet 500 mg PO BID PRN PRN Pain #20 tabs 12/28/18 Unknown Rx phenazopyridine 200 mg tablet 200 mg PO BID PRN PRN Pain #10 tabs 07/19/19 Unknown Rx sulfamethoxazole 800 1 tab PO BID #6 tabs 07/19/19 Unknown Rx mg-trimethoprim 160 mg tablet sertraline 100 mg tablet 100 mg PO QHS #30 tabs 03/11/22 Unknown Rx amoxicillin 875 mg-potassium 875 mg PO Q12H #14 TABLETS 08/12/24 Unknown Rx clavulanate 125 mg tablet Allergy/AdvReac Type Severity Reaction Status Date / Time cat dander Allergy Shortness Verified 08/12/24 17:41 of breath dog dander Allergy Shortness Verified 08/12/24 17:41 of breath grass pollen Allergy Hives Verified 08/12/24 17:41 acetaminophen (From Vicodin) AdvReac Vomiting Verified 08/12/24 17:41 hydrocodone bitartrate (From AdvReac Vomiting Verified 08/12/24 17:41 Vicodin) Social History Smoking Status: Current some day smoker tobacco type: cigarettes ROS ROS ED Constitutional Constitutional ED: Reports chills, fever(s), subjective and sweats; Denies weight loss Eyes Eyes: Denies blurry vision or change in vision ENT ENT ED: Reports rhinorrhea and sore throat; Denies ear pain Cardiovascular Cardiovascular: Denies chest pain, orthopnea, palpitations or paroxysmal nocturnal dyspnea Respiratory/Chest Respiratory/Chest: Reports cough and sputum; Denies dyspnea, dyspnea on exertion, orthopnea or paroxysmal nocturnal dyspnea Gastrointestinal Gastrointestinal: Denies abdominal pain, diarrhea, nausea or vomiting Musculoskeletal Musculoskeletal: Reports arthralgias and myalgias Integumentary Reports rash and other Details: Rashes cellulitis due to cat bite left thumb Neurologic Neurologic: Reports headache(s) and weakness; Denies paresthesias Hematologic/Lymphatic Hematologic/Lymphatic: Reports systems reviewed and no addt'l complaints, except as documented EXAM Physical Exam Const Vital Signs: 08/12/24 17:36 08/12/24 17:58 Temperature 98.1 F Temperature Source Temporal Pulse Rate 74 Respiratory Rate 15 Respiratory Effort Normal Respiratory Pattern Normal Blood Pressure 135/102 H Blood Pressure Mean 113 Pulse Ox 99 Oxygen Delivery Method Room Air Positive well nourished and well developed General Appearance ED: well developed and NAD; Negative for cyanotic or diaphoretic HEENT Reports moist mucous membranes HEENT Narrative: Head is atraumatic normocephalic. Ears normal. Nares patent with slight clear drainage. Posterior pharynx is normal. Uvula is midline. No deviation of tongue with protrusion. Eyes PERRL and EOMs intact bilaterally General Eye ED: Negative for scleral icterus Neck no lymphadenopathy, supple and no JVD Resp normal respiratory effort and clear to auscultation bilaterally Cardio regular rate, regular rhythm, S1 normal heart sound, S2 normal heart sound and no murmurs Extremity Negative for normal to inspection Extremity Narrative: Patient has superficial scratch or bite dorsal surface of thumb. There is a puncture wound noted on the volar surface. Median, radial and ulnar function intact. Sensation is normal. The superficial wound has erythema around it greater than a centimeters. The puncture wound has erythema as well. There is no fluctuance. The superficial wound has some drainage which may be murky/cloudy. It is not alexandro purulent material. There is no pain with passive flexion extension of the thumb. There is no lymphangitis. There is no epitrochlear lymphadenopathy. Neuro oriented x3 and CN's II-XII intact bilaterally Sensorium / Orientation: alert Psych Mood & Affect: anxious Skin No no wounds Skin Narrative: Described under the extremity portion of the EMR MDM MDM MDM Narrative Medical decision making narrative: Patient with infected cat bite. She received Augmentin p.o. Her other symptoms consistent with either COVID, flu or influenza. She was tested for this. She is on anti-depressant medication. Since patient has normal vital signs not febrile not hypoxic and lungs that are clear to auscultation imaging is not indicated based on study published in annals of internal medicine 2-3 decades ago. History & Record Review Additional record(s) reviewed:: Prior outpatient record (Urgent care record for contusion of right great toe by CARMEN Ureña) and Prior ED visit (February 2023 for hand injury and depression seen by different physicians.) Lab Data Attestation: I reviewed the patient's lab results. Lab results narrative: Rapid antigen for COVID, influenza and RSV are all negative. Patient probably has 1 of 20 other potential viral infections based on her history and physical. Treatment and Re-Evaluation :: Treatment is symptomatic. Patient was told she may be ill for another 7 to 10 days. Discharge Plan Triage Chief Complaint: Cold Sx ED Provider: Miguel Lowry Dx/Rx/DC Orders Clinical Impression: Flu-like symptoms, Cat bite of left thumb with infection Instructions: ED Cat Bite, ED Viral Syndrome (Adult) Prescriptions: New amoxicillin-pot clavulanate 875-125 mg tablet 875 mg PO Q12H Qty: 14 0RF No Action buspirone 30 MG tablet 30 mg PO QHS naproxen 500 MG tablet 500 mg PO BID PRN Qty: 20 0RF naproxen 500 MG tablet 500 mg PO BID PRN PRN (Reason: Pain) Qty: 20 0RF sulfamethoxazole-trimethoprim 1 TABLET tablet 1 tab PO BID Qty: 6 0RF phenazopyridine 200 MG tablet 200 mg PO BID PRN PRN (Reason: Pain) Qty: 10 0RF sertraline 100 MG tablet 100 mg PO QHS Qty: 30 0RF Primary Care Provider: Julio Bonilla Referrals: Julio Bonilla MD [Primary Care Provider] - 2 Days for wound check Print Language: Barbadian Disposition Disposition: Home, Self Care
[2024-08-12] MEDS: Amox/Clavulanate 875 MG Tablet PO (17:53)
== END 2024-08-12 19:12 | disposition home or self-care (01) ==
PROVIDERS: Emergency Provider Emergency Medicine; PCP Internal Medicine; Visit Provider Emergency Medicine
DX: S60.372A Other superficial bite of left thumb, initial encounter (principal); L08.9 Local infection of the skin and subcutaneous tissue, unspecified; W55.01XA Bitten by cat, initial encounter; R05.9 Cough, unspecified; R51.9 Headache, unspecified; M79.10 Myalgia, unspecified site; J02.9 Acute pharyngitis, unspecified; R09.81 Nasal congestion; F32.A Depression, unspecified; F41.9 Anxiety disorder, unspecified; Z79.899 Other long term (current) drug therapy; F17.210 Nicotine dependence, cigarettes, uncomplicated; J34.89 Other specified disorders of nose and nasal sinuses
CPT/HCPCS: 87631; 99282